=== PATIENT | female | born 1995 | race Hispanic/Latino ===

== ENCOUNTER 2019-01-03 06:54 | Emergency (ER) | payer OTHER ==
[~2019-01-03] VITALS: Ht 157.5 cm; Wt 69.9 kg
[~2019-01-03 06:54] MED LIST: METFORMIN HCL500 MG PO; NAPROXEN250 MG PO; SPRINTEC1 EACH PO
--- OUTSIDE RECORDS SUMMARY | 2019-01-03 06:56 | XMS REPORT | Summary of Care ---
Author Author [facility] Organization [facility] Address Unknown Phone Unavailable Encounter HQ Encntr_alias(FIN) [id number] Date(s): 09/26/16 - 09/26/16 [facility] [address] [place] [address]- Discharge Disposition: Home or Self Care Attending Physician: Antonio Eid MD Referring Physician: Antonio Eid MD Vital Signs No data available for this section Problem List No data available for this section Allergies, Adverse Reactions, Alerts No data available for this section Medications No data available for this section Results No data available for this section Immunizations No data available for this section Procedures No data available for this section Social History No data available for this section Assessment and Plan No data available for this section
--- OUTSIDE RECORDS SUMMARY | 2019-01-03 06:56 | XMS REPORT | Summary of Care ---
Author Author [facility] Organization [facility] Address Unknown Phone Unavailable Encounter HQ Encntr_alias(FIN) [id number] Date(s): 09/28/16 - 09/28/16 [facility] [address] [place] [address]- Discharge Disposition: Home or Self Care Attending Physician: Geovany Green MD Referring Physician: Geovany Green MD Vital Signs No data available for [...]
--- OUTSIDE RECORDS SUMMARY | 2019-01-03 06:56 | XMS REPORT | Continuity of Care Document ---
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 09/24/2016 [facility] Medications Medication Details Route Status Patient Instructions Ordering Provider Order Date Source Allergies, Adverse Reactions, Alerts Substance Category Reaction Severity Reaction type Status Date Reported Comments Source Immunizations Immunization Date Given Site Status Last Updated Comments Source Results Order Name Results Value Reference Range Date Interpretation Comments Source Pelvis Complete US Pelvis Complete US Pelvis Complete US ; 21 years /o Female Clinical Indication: Abdominal pain, acute; Comparison: None Technique: Grayscale, color transabdominal imaging of the pelvis was performed with standard technique. FINDINGS: The urinary bladder is well distended. TRANSABDOMINAL PELVIC ULTRASOUND: UTERUS: The transabdominal pelvic ultrasound evaluation of the uterus shows that the anteverted uterus measures 7.6 x 2.4 x 4.1 cm in size. The uterine parenchyma is not well assessed on the transabdominal pelvic ultrasound. OVARIES: There is normal ovarian contour and morphology. There are no adnexal masses. Right ovary measures 3.8 x 1.6 x 2.5 cm Left ovary measures 3.7 x 1.8 x 2.4 cm. OTHER FINDINGS: The transabdominal sonographic images show no free fluid in the pelvic cul-de-sac. IMPRESSION: Unremarkable transabdominal pelvic ultrasound. SL: SSTRACI 09/28/2016 - - Read by: Satya Jamison MD Dictated Date/time: 09/29/16 22:11 Electronically Signed by: Satya Jamison MD 09/29/16 22:14 FINAL REPORT [facility] Abdomen complete US Abdomen complete US Abdomen complete US TECHNIQUE: Grayscale and color Doppler images of the abdomen were performed with a curvilinear transducer. Static images are submitted for review. CLINICAL HX: K76.0 Fatty (change of) liver, not elsewhere classified; COMPARISON: None FINDINGS: LIVER AND SPLEEN: There is diffuse heterogeneous increase in echogenicity of the liver suggestive of fatty infiltration and/or nonspecific hepatocellular disease. No focal hepatic lesion is visualized. Spleen is normal in size. GALL BLADDER AND BILE DUCTS: Gall bladder is sonolucent without evidence for gall stones. CBD measures 3 mm. PANCREAS: Pancreas is largely obscured by bowel gas. Visualized portion of the pancreas is unremarkable. KIDNEYS: The kidneys are comparable in size and reveal no gross masses or any evidence for hydronephrosis. Maximal sagittal diameter of the right kidney is 11.3 cm and the left kidney is 11.6 cm. VASCULAR: Midline structures are partially obscured due to bowel gas. Visualized portion of the aorta and IVC are unremarkable. ASCITES: No free fluid is present in the upper abdomen. No significant effusion is noted on either side. IMPRESSION: There is diffuse heterogeneous increase in echogenicity of the liver suggestive of fatty infiltration and/or nonspecific hepatocellular disease. No other significant sonographic abnormality is noted in the abdomen. SL: [id number] 09/26/2016 - - Read by: South Kauffman MD Dictated Date/time: 09/26/16 10:55 Electronically Signed by: South Kauffman MD 09/26/16 11:13 FINAL REPORT [facility] Vital Signs Vital Sign Value Date Comments Source Encounters Location Location Details Encounter Type Encounter Number Reason For Visit Attending Provider ADM Date DC Date Status Source [facility] Outpatient [id number] Antonio Eid 09/26/2016 09/27/2016 [facility] Outpatient [id number] Geovany Green 09/28/2016 09/29/2016 [facility] Procedures Procedure Code Date Perfomer Comments Source
[2019-01-03] MEDS ORDERED: SODIUM CHLORIDE 0.9% 1000ML 1,000 ML IV STA (08:15)
[2019-01-03] MEDS ORDERED: PANTOPRAZOLE 40 MG 10ML VIAL IV NR (08:15)
[2019-01-03] MEDS ORDERED: MORPHINE SULFATE INJ 4 MG/ML INJ 1ML IV NR (08:15)
[2019-01-03] MEDS ORDERED: ONDANSETRON HCL INJ 2MG/ML 2ML 2 MG/ML VIAL IV STA (08:15)
--- NOTE | 2019-01-03 08:15 | NUR ---
DR. WASHBURN AT BEDSIDE FOR PT EVAL AT THIS TIME.
[2019-01-03 08:24] LABS: AMPHETAMINES SCREEN,URINE NEGATIVE (NEGATIVE); BENZODIAZEPINES SCREEN,URINE NEGATIVE (NEGATIVE); PHENCYCLIDINE SCREEN,URINE NEGATIVE (NEGATIVE)
--- NOTE | 2019-01-03 08:45 | NUR ---
PT REFUSED MORPHINE AND ZOFRAN AT THIS TIME, DENIES NAUSEA, STATES PAIN NOW 01/22. DR. WASHBURN MADE AWARE OF THIS.
[2019-01-03 08:47] LABS: BASOPHILS # (AUTO) 0.1 (0.0-0.1); BASOPHILS % 0.5 % (0.0-1.0); EOSINOPHILS # (AUTO) 0.2 (0.0-0.4); EOSINOPHILS % 1.8 % (0.0-6.0); HEMATOCRIT 41.2 % (34.2-44.1); HEMOGLOBIN 13.4 g/dL (12.0-16.0); LYMPHOCYTES # (AUTO) 2.8 (1.0-3.2); LYMPHOCYTES % 23.4 % (18.0-39.1); MEAN CORPUSCULAR HEMOGLOBIN 28.9 pg (28-32); MEAN CORPUSCULAR HGB CONC 32.5 g/dL (31-35); MONOCYTES # (AUTO) 0.6 (0.2-0.8); MONOCYTES % 4.7 % (4.4-11.3); NEUTROPHILS # (AUTO) 8.4 (2.1-6.9); NEUTROPHILS % 69.1 % (38.7-80.0); PLATELET COUNT 197 x10e3/uL (140-360); RED BLOOD COUNT 4.63 x10e6/uL (3.6-5.1); RED CELL DISTRIBUTION WIDTH 12.6 % (11.7-14.4)
[2019-01-03 08:50] LABS: BILIRUBIN,URINE NEGATIVE (NEGATIVE); CLARITY,URINE CLOUDY (CLEAR); COLOR,URINE YELLOW (YELLOW); KETONES,URINE NEGATIVE (NEGATIVE); LEUKOCYTE ESTERASE ,URINE NEGATIVE (NEGATIVE); NITRITE,URINE NEGATIVE (NEGATIVE); PROTEIN,URINE DIPSTICK NEGATIVE (NEGATIVE); URINE UROBILINOGEN 0.2 mg/dL (0.2 - 1)
--- NOTE | 2019-01-03 08:51 | Diagnostic Imaging Report ---
EXAMINATION: CHEST 2 VIEWS INDICATION: Chest pain. COMPARISON: None FINDINGS: TUBES and LINES: None. LUNGS: Lungs are not well inflated. There is no evidence of pneumonia or pulmonary edema. PLEURA: No pleural effusion or pneumothorax. HEART AND MEDIASTINUM: The cardiomediastinal silhouette is unremarkable. BONES AND SOFT TISSUES: No acute osseous lesion. Soft tissues are unremarkable. UPPER ABDOMEN: No free air under the diaphragm. IMPRESSION: No acute radiographic abnormality. Signed by: Dr. Elvira Jim MD on 01/03/2019 8:48 AM
[2019-01-03 08:52] LABS: BACTERIA,URINE MANY /HPF; EPITHELIAL CELLS,URINE MODERATE /LPF; RBC,URINE 0-5 /HPF (0-5)
[2019-01-03 09:05] LABS: ALANINE AMINOTRANSFERASE 105 IU/L (0-55); ALBUMIN 3.7 g/dL (3.5-5.0); ALBUMIN/GLOBULIN RATIO 1.2 (0.8-2.0); ALKALINE PHOSPHATASE 50 IU/L (40-150); AMYLASE 65 U/L (25-125); ANION GAP 13.8 mmol/L (8-16); BLOOD UREA NITROGEN 7 mg/dL (7-26); BUN/CREATININE RATIO 10 (6-25); CALCIUM 9.5 mg/dL (8.4-10.2); CARBON DIOXIDE 28 mmol/L (22-29); CHLORIDE 102 mmol/L (98-107); CREATINE KINASE 45 IU/L (29-168); CREATININE, SERUM 0.73 mg/dL (0.57-1.11); EST GLOMERULAR FILTRATION RATE > 60 ML/MIN (60-); GLUCOSE 94 mg/dL (74-118); LIPASE 67 U/L (8-78); POTASSIUM 3.8 mmol/L (3.5-5.1); SODIUM 140 mmol/L (136-145)
[2019-01-03 09:06] LABS: CHOL/HDL RATIO 3.1 (3.0-3.6)
[2019-01-03 09:14] LABS: INR 0.88; PARTIAL THROMBOPLASTIN TIME 27.3 seconds (23.8-35.5); PROTHROMBIN TIME 12.4 seconds (11.9-14.5)
--- NOTE | 2019-01-03 11:12 | Diagnostic Imaging Report ---
EXAM: CT Abdomen and Pelvis WITH contrast INDICATION: Abdominal Pain COMPARISON: Report from CT abdomen/pelvis 09/30/2015, although the images are not available for review. TECHNIQUE: Abdomen and pelvis were scanned utilizing a multidetector helical scanner from the lung base to the pubic symphysis after administration of IV contrast. Coronal and sagittal reformations were obtained. Routine protocol was performed. Scan was performed when during portal venous phase. IV CONTRAST: 100 cc of Isovue 370 ORAL CONTRAST: Water COMPLICATIONS: None RADIATION DOSE: Total DLP: 432.6 mGy*cm Dose modulation, iterative reconstruction, and/or weight based adjustment of the mA/kV was utilized to reduce the radiation dose to as low as reasonably achievable. FINDINGS: LINES and TUBES: None. LOWER THORAX: Patchy dependent atelectasis. HEPATOBILIARY: Diffuse hepatic steatosis. No evidence of focal lesion. No biliary ductal dilation. GALLBLADDER: No radio-opaque stones or sludge. No wall thickening. SPLEEN: No splenomegaly. PANCREAS: No focal masses or ductal dilatation. ADRENALS: No adrenal nodules KIDNEYS/URETERS: Kidneys enhance symmetrically. No evidence of hydronephrosis, solid mass, or stone. GI TRACT: No evidence of wall thickening or distension. Appendix is normal. PELVIC ORGANS/BLADDER: There is a 3.1 cm left ovarian adnexal cyst. LYMPH NODES: No lymphadenopathy. VESSELS: Unremarkable. PERITONEUM / RETROPERITONEUM: No free air or fluid. BONES AND SOFT TISSUES: Unremarkable. CONCLUSION: Diffuse hepatic steatosis. Signed by: Dr. Elvira Jim MD on 01/03/2019 11:09 AM
[2019-01-03] MEDS ORDERED: SODIUM CHLORIDE 0.9% 50ML 50 ML ONE (11:14)
[2019-01-03] MEDS ORDERED: IOPAMIDOL 370 MG/ML 200 ML INFUS..BTL INJ ONE (11:15)
[2019-01-03 12:04] VITALS: BP 116/64
== END 2019-01-03 12:22 | disposition home or self-care (01) ==
LOC: ER 06:54
DX: R10.13 Epigastric pain (principal)
CPT/HCPCS: 36415; 71046; 74177; 80053; 80061; 80307; 81001; 81025; 82150; 82550; 82553; 83690; 83735; 84484; 85025; 85379; 85610; 85730; 93005; 99284; C9113; J2270; J2405; J7030; Q9967

== ENCOUNTER 2019-03-21 14:01 | Observation (INO) | payer OTHER ==
[~2019-03-21] VITALS: Ht 157.5 cm; Wt 76.7 kg
--- OUTSIDE RECORDS SUMMARY | 2019-03-21 14:03 | XMS REPORT | Continuity of Care Document ---
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 IMPRESSION: Unremarkable transabdominal pelvic ultrasound. SL: FER 09/28/2016 [facility] Abdomen complete US Abdomen complete US TECHNIQUE: [...] abnormality is noted in the abdomen. SL: [id number] 09/26/2016 [facility] Consultation Notes No Data Provided for This Section Discharge Summaries No Data Provided for This Section History and Physicals No Data Provided for This Section Vital Signs No Data Provided for This Section Encounters Location Location Details Encounter Type Encounter Number Reason For Visit Attending Provider ADM Date DC Date Status Source [facility] Outpatient [id number] Antonio Eid 09/26/2016 09/27/2016 [facility] Outpatient [id number] Geovany Green 09/28/2016 09/29/2016 [facility] Procedures No Data Provided for This Section Assessment and Plan No Data Provided for This Section Plan of Care No Data Provided for This Section Social History Social History Date Source No data available for this section 09/29/2016 [facility] Family History No Data Provided for This Section Advance Directives No Data Provided for This Section Functional Status No Data Provided for This Section
--- OUTSIDE RECORDS SUMMARY | 2019-03-21 14:04 | XMS REPORT ---
Author Author [facility] Address Unknown Phone Unavailable Care Team Providers Care Kier Hand Name Role Phone Mohinder WASHBURN Unavailable Unavailable Problems This patient has no known problems. Allergies, Adverse Reactions, Alerts This patient has no known allergies or adverse reactions. Medications This patient has no known medications. Results Test Description Test Time Test Comments Text Results Atomic Results Result Comments CT ABDOMEN/PELVIS W 2019-01-03 11:01:00 [place] [address] Patient Name: LJ MCKEON MR #: [id number] : 1995 Age/Sex: 23/F Req #: [id number] Adm Physician: Ordered by: MCKAY WASHBURN MD Report #: [id number] Location: ER Room/Bed: Procedure: [id number] CT/CT ABDOMEN/PELVIS W Exam Date: 01/03/19 Exam Time: 1043 REPORT STATUS: Signed EXAM: CT Abdomen and Pelvis WITH contrast INDICA TION: Abdominal Pain COMPARISON: Report from CT abdomen/pelvis 09/30/2015, although the images are not available for review. TECHNIQUE: Abdomen and pelvis were scanned utilizing a multidetector helical scanner from the lung base to the pubic symphysis after administration of IV contrast. Coronal and sagittal reformations were obtained. Routine protocol was performed. Scan was performed when during portal venous phase. IV CONTRAST: 100 cc of Isovue 370 ORAL CONTRAST: Water COMPLICATIONS: None RADIATION DOSE: Total DLP: 432.6 mGy*cm Dose modulation, iterative reconstruction, and/or weight based adjustment of the mA/kV was utilized to reduce the radiation dose to as low as reasonably achievable. FINDINGS: LINES and TUBES: None. LOWER THORAX: Patchy dependent atelectasis. HEPATOBILIARY: Diffuse hepatic steatosis. No evidence of focal lesion. No biliary ductal dilation. GALLBLADDER: No radio-opaque stones or sludge. No wall thickening. SPLEEN: No splenomegaly. PANCREAS: No focal masses or ductal dilatation. ADRENALS: No adrenal nodules KIDNEYS/URETERS: Kidneys enhance symmetrically. No evidence of hydronephrosis, solid mass, or stone. GI TRACT: No evidence of wall thickening or distension. Appendix is normal. PELVIC ORGANS/BLADDER: There is a 3.1 cm left ovarian adnexal cyst. LYMPH NODES: No lymphadenopathy. VESSELS: Unremarkable. PERITONEUM / RETROPERITONEUM: No free air or fluid. BONES AND SOFT TISSUES: Unremarkable. CONCLUSION: Diffuse hepatic steatosis. Signed by: Dr. Carson Marie MD on 01/03/2019 11:09 AM Dictated By: CARSON MARIE MD 110 Transcribed By: ROCHELLE on 01/03/19 110 COPY TO: MCKAY WASHBURN MD CHEST 2 VIEWS 2019-01-03 08:47:00 [place] [address] Patient Name: LJ MCKEON MR #: [id number] : 1995 Age/Sex: 23/F Req #: [id number] Adm Physician: Ordered by: MCKAY WASHBURN MD Report #: [id number] Location: ER Room/Bed: Procedure: [id number] DX/CHEST 2 VIEWS Exam Date: 01/03/19 Exam Time: 0820 REPORT STATUS: Signed EXAMINATION: CHEST 2 VIEWS INDICATION: Chest pain. COMPARISON: None FINDINGS: TUBES and LINES: None. LUNGS: Lungs are not well inflated. There is no evidence of pneumonia or pulmonary edema. PLEURA: No pleural effusion or pneumothorax. HEART AND MEDIASTINUM: The cardiomediastinal silhouette is unremarkable. BONES AND SOFT TISSUES: No acute osseous lesion. Soft tissues are unremarkable. UPPER ABDOMEN: No free air under the diaphragm. IMPRESSION: No acute radiographic abnormality. Signed by: Dr. Carson Marie MD on 01/03/2019 8:48 AM Dictated By: CARSON MARIE MD 0848 Transcribed By: ROCHELLE on 01/03/19 0848 COPY TO: MCKAY WASHBURN MD
[2019-03-21] MEDS ORDERED: SODIUM CHLORIDE 0.9% 1000ML 1,000 ML IV STA (14:22)
[2019-03-21] MEDS ORDERED: SODIUM CHLORIDE 0.9% 1000ML 1,000 ML ONE (14:26)
[2019-03-21 14:59] LABS: BASOPHILS # (AUTO) 0.1 (0.0-0.1); BASOPHILS % 0.5 % (0.0-1.0); EOSINOPHILS # (AUTO) 0.2 (0.0-0.4); EOSINOPHILS % 1.5 % (0.0-6.0); HEMATOCRIT 42.2 % (34.2-44.1); HEMOGLOBIN 13.7 g/dL (12.0-16.0); LYMPHOCYTES # (AUTO) 3.7 (1.0-3.2); MEAN CORPUSCULAR HEMOGLOBIN 29.2 pg (28-32); MEAN CORPUSCULAR HGB CONC 32.5 g/dL (31-35); MONOCYTES # (AUTO) 0.9 (0.2-0.8); MONOCYTES % 7.1 % (4.4-11.3); NEUTROPHILS # (AUTO) 8.2 (2.1-6.9); NEUTROPHILS % 62.6 % (38.7-80.0); PLATELET COUNT 199 x10e3/uL (140-360); RED BLOOD COUNT 4.69 x10e6/uL (3.6-5.1); RED CELL DISTRIBUTION WIDTH 12.1 % (11.7-14.4)
[2019-03-21] MEDS ORDERED: ONDANSETRON HCL INJ 2MG/ML 2ML 2 MG/ML VIAL IV ONE (15:00)
[2019-03-21] MEDS ORDERED: HYDROMORPHONE 2MG/ML 2 MG/ML ML IV ONE (15:00)
--- NOTE | 2019-03-21 15:00 | NUR ---
RECTAL TEMP OBTAINED 96.2; INFORMED DR. DE DIOS, PT PLACED ON FARZAD GGER.
[2019-03-21 15:20] LABS: ALANINE AMINOTRANSFERASE 85 IU/L (0-55); ALBUMIN 3.9 g/dL (3.5-5.0); ALBUMIN/GLOBULIN RATIO 1.5 (0.8-2.0); ALKALINE PHOSPHATASE 50 IU/L (40-150); AMYLASE 77 U/L (25-125); ANION GAP 18.7 mmol/L (8-16); BLOOD UREA NITROGEN 10 mg/dL (7-26); BUN/CREATININE RATIO 13 (6-25); CALCIUM 9.6 mg/dL (8.4-10.2); CARBON DIOXIDE 23 mmol/L (22-29); CHLORIDE 105 mmol/L (98-107); CREATININE, SERUM 0.76 mg/dL (0.57-1.11); EST GLOMERULAR FILTRATION RATE > 60 ML/MIN (60-); GLUCOSE 110 mg/dL (74-118); LIPASE 64 U/L (8-78); POTASSIUM 4.7 mmol/L (3.5-5.1); SODIUM 142 mmol/L (136-145)
--- NOTE | 2019-03-21 15:20 | NUR ---
LAB CALLED TO REPORT CRITICAL LACTIC ACID 27.3; INFORMED DR. DE DIOS AT THIS TIME.
[2019-03-21 15:40] LABS: THYROID STIMULATING HORMONE 1.486 uIU/mL (0.350-4.940)
--- NOTE | 2019-03-21 15:50 | NUR ---
FARZAD RAINEY REMOVED, PT MAINTAINING TEMPERATURE AT THIS TIME; PROVIDED WITH WARM BLANKETS.
[2019-03-21] MEDS ORDERED: ONDANSETRON HCL INJ 2MG/ML 2ML 2 MG/ML VIAL IV PRN (17:15)
[2019-03-21] MEDS ORDERED: HYDROMORPHONE 2MG/ML 2 MG/ML ML IV PRN (17:15)
[2019-03-21] MEDS: SODIUM CHLORIDE 0.9% 1000ML 1,000 ML IV SCH (17:40)
[2019-03-21] MEDS: PIPER-TAZ 3.375 GM 50 ML IV SCH ×2 (17:42→23:30)
--- OUTSIDE RECORDS SUMMARY | 2019-03-21 17:48 | XMS REPORT | Continuity of Care Document ---
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 SL: FER 09/28/2016 [facility] Abdomen complete US Abdomen complete US TECHNIQUE: [...] abnormality is noted in the abdomen. SL: [id number] 09/26/2016 [facility] Consultation Notes No Data Provided for This Section Discharge Summaries No Data Provided for This Section History and Physicals No Data Provided for This Section Vital Signs No Data Provided for This Section Encounters Location Location Details Encounter Type Encounter Number Reason For Visit Attending Provider ADM Date DC Date Status Source [facility] Outpatient [id number] Antonio Eid 09/26/2016 09/27/2016 [facility] Outpatient [id number] Geovany Green 09/28/2016 09/29/2016 [facility] Procedures No Data Provided for This Section Assessment and Plan No Data Provided for This Section Plan of Care No Data Provided for This Section Social History Social History Date Source No data available for this section 09/29/2016 [facility] Family History No Data Provided for This Section Advance Directives No Data Provided for This Section Functional Status No Data Provided for This Section
[2019-03-21] MEDS ORDERED: PIPER-TAZ 3.375 GM / NS 50ML IV SCH (18:00)
--- NOTE | 2019-03-21 18:20 | NUR ---
RECD PT FROM ER VIA WC AAOX3 DENIES PAIN,NO DISTRESS NTOED,TELE IN PLACE ,NSR 65,IVF INFUSING TO LT AC 20 GAUGE.CALL VILLAR IN REACH,HOB ELEVATED.
[2019-03-21 18:52] LABS: BILIRUBIN,URINE SMALL (NEGATIVE); CLARITY,URINE SL CLOUDY (CLEAR); COLOR,URINE YELLOW (YELLOW); KETONES,URINE TRACE (NEGATIVE); LEUKOCYTE ESTERASE ,URINE TRACE (NEGATIVE); NITRITE,URINE NEGATIVE (NEGATIVE); PROTEIN,URINE DIPSTICK TRACE (NEGATIVE); URINE UROBILINOGEN 2 mg/dL (0.2 - 1)
--- NOTE | 2019-03-21 19:00 | NUR ---
Report and walking rounds completed. Patient in bed with family at bedside. Call light within reach. Will continue to monitor.
[2019-03-21 19:05] VITALS: BP 121/66
[2019-03-21 19:11] LABS: BACTERIA,URINE MODERATE /HPF; EPITHELIAL CELLS,URINE FEW /LPF; RBC,URINE 0-5 /HPF (0-5)
[2019-03-21 19:30] VITALS: BP 121/66
[2019-03-21 20:00] VITALS: BP 120/58
[2019-03-22] VITALS (7 sets, daily range): BP systolic 107–124; BP diastolic 55–63
[2019-03-22] MEDS: SODIUM CHLORIDE 0.9% 1000ML 1,000 ML IV SCH ×3 (01:25→20:35)
[2019-03-22 05:55] LABS: BASOPHILS % 0.5 % (0.0-1.0); EOSINOPHILS # (AUTO) 0.1 (0.0-0.4); EOSINOPHILS % 1.3 % (0.0-6.0); HEMATOCRIT 35.7 % (34.2-44.1); HEMOGLOBIN 11.7 g/dL (12.0-16.0); LYMPHOCYTES # (AUTO) 2.8 (1.0-3.2); LYMPHOCYTES % 32.4 % (18.0-39.1); MEAN CORPUSCULAR HEMOGLOBIN 29.7 pg (28-32); MEAN CORPUSCULAR HGB CONC 32.8 g/dL (31-35); MEAN CORPUSCULAR VOLUME 90.6 fL (81-99); MONOCYTES # (AUTO) 0.6 (0.2-0.8); MONOCYTES % 7.2 % (4.4-11.3); NEUTROPHILS % 58.4 % (38.7-80.0); PLATELET COUNT 164 x10e3/uL (140-360); RED BLOOD COUNT 3.94 x10e6/uL (3.6-5.1); RED CELL DISTRIBUTION WIDTH 12.3 % (11.7-14.4)
[2019-03-22 06:06] LABS: ANION GAP 12.3 mmol/L (8-16); BLOOD UREA NITROGEN 8 mg/dL (7-26); BUN/CREATININE RATIO 10 (6-25); CALCIUM 8.6 mg/dL (8.4-10.2); CARBON DIOXIDE 24 mmol/L (22-29); CHLORIDE 106 mmol/L (98-107); CREATININE, SERUM 0.77 mg/dL (0.57-1.11); EST GLOMERULAR FILTRATION RATE > 60 ML/MIN (60-); GLUCOSE 87 mg/dL (74-118); POTASSIUM 4.3 mmol/L (3.5-5.1); SODIUM 138 mmol/L (136-145)
[2019-03-22] MEDS: PIPER-TAZ 3.375 GM 50 ML IV SCH ×4 (06:08→23:23)
[2019-03-22 06:33] LABS: CHOL/HDL RATIO 3.5 (3.0-3.6)
--- NOTE | 2019-03-22 07:30 | NUR ---
RECEIVED PATIENT AWAKE RESTING IN BED NO SIGNS OF DISTRESS. BED LOW, WHEELS LOCKED, SIDE RAILS X2. CALL LIGHT IN REACH WILL CONTINUE TO MONITOR PATIENT.
--- NOTE | 2019-03-22 09:20 | NUR ---
PATIENT A/O X3, EVEN RESPIRATIONS ON RA. LUNG SOUNDS CLEAR TO AUSCULTATION. LEFT AC 18 GAUGE WITH NS @ 125 CC/HR. PATIENT AMBULATES INDEPENDENTLY. TELEMETRY #7 SR. VITAL SIGNS STABLE. SKIN INTACT. CALL LIGHT IN REACH. WILL CONTINUE TO MONITOR PATIENT.
--- NOTE | 2019-03-22 11:07 | Diagnostic Imaging Report ---
EXAM: Right upper quadrant abdominal ultrasound INDICATION: Right upper quadrant pain COMPARISON: CT abdomen and pelvis of 01/03/2019 TECHNIQUE: Transverse and longitudinal images of the right upper quadrant abdomen were obtained FINDINGS: Liver: Size: 16.4 cm in the right midclavicular line. Appearance: Increased echogenicity of liver parenchyma. Smooth liver contour. Mass: No focal masses Gallbladder: Dependent gallstones and sludge in the fluid-filled gallbladder. No gallbladder wall thickening (2.7 mm). No pericholecystic fluid. Negative sonographic Morel's sign. Bile Ducts: Intrahepatic Ducts: No dilatation Extrahepatic Ducts: Common bile duct measures 5.8 mm, no dilatation Pancreas: Visualized portions of the pancreatic head, neck and proximal body are normal. Kidney: The right kidney measures 11.7 cm without evidence of hydronephrosis or stone. Vessels: Aorta: Visualized portions are normal Inferior Vena Cava: Visualized portions are normal Main Portal Vein: 0.96 cm, normal size with hepatopetal flow. Free Fluid: No ascites or pleural effusion IMPRESSION: Cholelithiasis without specific sonographic evidence of cholecystitis. Hepatic steatosis. Liver size measures upper limits of normal. Signed by: Tom Walter MD on 03/22/2019 11:03 AM
--- NOTE | 2019-03-22 14:55 | NUR ---
PATIENT OFF UNIT FOR HIDA SCAN AT THIS TIME.
[2019-03-22] MEDS ORDERED: ACETAMINOPHEN 325 MG TAB PO PRN (15:30)
[2019-03-22] MEDS ORDERED: MORPHINE SULFATE 2 MG/ML SYR 1ML IV PRN (15:30)
[2019-03-22] MEDS ORDERED: MORPHINE SULFATE INJ 4 MG/ML INJ 1ML IV PRN (15:45)
--- NOTE | 2019-03-22 16:00 | NUR ---
Nutrition Screen Note RD Recommendation for Physician: -Rec advancing diet as tolerated to low fat diet Plan of Care: RD following, monitoring for tolerance and adequacy, diet education Nutrition reason for involvement: RN consult low fat diet Primary Diagnose(s): recurrent severe abdominal pain, lactic acidosis PMH: Non-alcoholic fatty liver, PCOS, pancreatitis Ht: 62in Wt: 154lb BMI: 28.2kg/m2 IBW: 110lb +/- 10% RD Assessment: (03/22) Chart reviewed. Labs and meds reviewed. 23yo F, who was admitted for recurrent abdominal pain. Lipase WNL. TG was high at 232 and cholesterol WNL. Gallbladder US showed cholelithiasis. Pending HIDA scan. Visited pt in the room. Pt denied any pain at this time. No complains of nausea or vomiting. LBM 03/21, diarrhea per pt. Her weight has fluctuated since pt was making an effort to lose weight. RD provided education on low fat diet as consulted. All questions have been answered. Current Diet: NPO Malnutrition Evaluation (03/22/2019) The patient does not meet criteria for a specified degree of malnutrition at this time. Will re-evaluate at follow-up as appropriate. Diet Education Needs Assessment: Diet education indicated, pt is agreeable. Learner(s): pt and mother Time spent: 20 minutes Barriers: No barriers identified. Cultural/Language Modifications: No cultural/language modifications noted. Pt and mother speak Setswana. Readiness: Pt eager to learn. Method: Handouts, explanation Topics: Triglyceride Nutrition Therapy Understanding/Compliance: Expect good understanding/compliance from pt. Will benefit from reinforcement. All questions have been answered. Nutrition Care Level: low Signed: Jodie Tejada, MS, RD, LD
[2019-03-22] MEDS: METFORMIN HCL 500 MG TAB PO SCH (17:00)
--- NOTE | 2019-03-22 17:41 | History and Physical ---
CHIEF COMPLAINT: Epigastric pain. HISTORY OF PRESENT ILLNESS: This is a 23-year-old female, morbidly obese, who has a history of chronic pancreatitis in the past, who presents to the ED with complaints of epigastric abdominal pain, episodic in nature, sharp as well. The patient reports that she has had a history of pancreatitis in the past, which is resolved on spontaneously. She now reports episodic epigastric abdominal pain ongoing for several weeks now. She reports that the pain will last about 1 to 2 hours, then resolved on its own. She reports the pain is very sharp in nature, nausea, associated with no vomiting. The pain is resolved back to our. She states that she was doing much better with no complaints. She is back to normal baseline. The patient denies any usage of NSAIDs [id number] at home. The patient is seen and evaluated at bedside on the medical floor. Currently, she is doing well with no other issues at this time. REVIEW OF SYSTEMS: Pertinent positives: Epigastric abdominal pain, decreased oral intake, nausea. Pertinent negative: Denies any chest pain, palpitation, dysuria, hematuria, frequency, urgency, lightheadedness, dizziness, cough, congestion, fever, or any other complaints. The rest of 14-point review of systems have been reviewed with the patient and are negative. ALLERGIES: NO KNOWN DRUG ALLERGIES. MEDICATIONS: Metformin 500 mg p.o. b.i.d., naproxen 500 mg p.o. b.i.d. for pain, she also takes daily. PAST MEDICAL HISTORY: PCOS, morbidly obese. PAST SURGICAL HISTORY: None. FAMILY HISTORY: Hypertension and diabetes. SOCIAL HISTORY: No drugs. No alcohol. Does not smoke. Good social support. PHYSICAL EXAMINATION: VITAL SIGNS: Temperature is 99.5, pulse 82, respiratory rate is 18, blood pressure 108/55. T-max is 99.5. No evidence of any fever. GENERAL: In no acute distress, alert and oriented x3. Cooperative on exam. HEENT: Head is normocephalic and atraumatic. Eyes; pupils are equal, round, and reactive to light bilaterally. Throat, no . NECK: Supple. Good range of motion. PULMONARY: Clear to auscultation bilaterally. No wheezing, no rales, no rhonchi. CARDIOVASCULAR: Positive S1, S2. No murmurs, rubs, or gallops appreciated. ABDOMEN: Soft, nondistended, and nontender to palpation. Bowel sounds present. MUSCULOSKELETAL: Strength is 5/5 throughout. No evidence of any muscle deficits on examination. No weakness appreciated. NEUROLOGICAL: Cranial nerves II through XII grossly intact. No evidence of any neurological deficits on exam. SKIN: Intact. Warm to touch. Good cap refill. PSYCHIATRIC: Normal affect and mood. EXTREMITIES: No edema. Good range of motion. LABORATORY DATA: Lab findings show white count 8.6, hemoglobin 11.7, hematocrit 35.7, and platelets of 164. Chemistry; sodium 138, potassium 4.3, chloride 106, bicarb 24, anion gap of 12, BUN is , creatinine 0.77, glucose is 87. Lactic acid was 27. Calcium 8.6. LFTs, total bilirubin is 0.9, AST 161, ALT 85, calcium 9.6, alk phos 50. Total bilirubin 3.9, LDL 63, triglycerides 232, lipase is 64, TSH 1.4. Urinalysis noted trace protein, trace ketones, trace leukocyte esterase, 6-10 wbc's, moderate bacteria. Blood cultures, no growth. Urine cultures, preliminary no growth. IMAGING STUDIES: Gallbladder ultrasound found to be negative for acute cholecystitis. Hepatic steatosis. Liver size measures upper limits of normal. IMPRESSION: 1. Epigastric abdominal pain, unknown etiology. 2. History of polycystic ovary syndrome. 3. Type 2 diabetes. PLAN: At this time, GI has been consulted. HIDA scan has been ordered, still pending. Right upper quadrant ultrasound shows no evidence of cholecystitis. This pain shows evidence of hepatic steatosis. If HIDA scan is negative, we will likely need to be getting EGD to further evaluate. Resume same home medications. Encourage ambulation for DVT prophylaxis. She is on a regular diet. Otherwise, we will continue same plan of care. No other changes. MD VANDANA Christopher/MODL /[id number]
--- NOTE | 2019-03-22 18:10 | NUR ---
CONSULTED DR. BISHOP. PATIENT OK TO HAVE CLEAR LIQUIDS. WILL BE NPO AFTER MIDNIGHT.
--- NOTE | 2019-03-22 19:02 | Diagnostic Imaging Report ---
Hepatobiliary Scan with Gallbladder Ejection Fraction Clinical information: Abdominal pain x 3 months Technique: Following intravenous administration of 6.7 millicuries of Tc-99m mebrofenin, dynamic images of the abdomen in the anterior projection were obtained through 60 minutes. Sincalide (CCK analog) 1.5 micrograms was administered intravenously over 30 minutes with additional imaging for determination of gallbladder ejection fraction. Discussion: Perfusion of the liver is normal. Extraction of tracer by the liver parenchyma is normal. Tracer appears promptly within the biliary tract. The gallbladder begins to fill at 35 minutes post injection of tracer and fills adequately. Tracer is seen in the small bowel during the sincalide infusion. There is no contractile response by the gallbladder to the pharmacologic dose of sincalide. No emptying of the gallbladder occurs during the 30 minute infusion. Impression: 1. Filling of the gallbladder excludes acute cystic duct obstruction/acute cholecystitis. 2. The gallbladder ejection fraction is undefined as there is no emptying of the gallbladder during the infusion of sincalide. This absence of a contractile response to sincalide supports the clinical diagnosis of chronic cholecystitis/gallbladder dyskinesia. Signed by: Dr. Erin Kinsey M.D. on 03/22/2019 6:59 PM
[2019-03-23] VITALS (7 sets, daily range): BP systolic 118–132; BP diastolic 55–77
--- NOTE | 2019-03-23 | NUR ---
Tele called and stated HR down into 40's, patient sleeping. Patient awoken, denies any symptoms, remain asymptomatic. Patient reported that HR went down to 39 BPM in ER. Will continue to monitor.
[2019-03-23] MEDS: PIPER-TAZ 3.375 GM 50 ML IV SCH ×3 (06:15→21:18)
--- NOTE | 2019-03-23 06:38 | NUR ---
Notified Dr Davis of low HR in 40's while patient slept. Lowest dropped was 38 but did not sustain. Patient asymptomatic. No new orders at this time.
[2019-03-23 06:41] LABS: BASOPHILS % 0.5 % (0.0-1.0); EOSINOPHILS # (AUTO) 0.2 (0.0-0.4); EOSINOPHILS % 2.7 % (0.0-6.0); HEMATOCRIT 37.4 % (34.2-44.1); LYMPHOCYTES # (AUTO) 2.8 (1.0-3.2); LYMPHOCYTES % 47.4 % (18.0-39.1); MEAN CORPUSCULAR HEMOGLOBIN 29.4 pg (28-32); MEAN CORPUSCULAR HGB CONC 32.1 g/dL (31-35); MEAN CORPUSCULAR VOLUME 91.7 fL (81-99); MONOCYTES # (AUTO) 0.4 (0.2-0.8); MONOCYTES % 6.5 % (4.4-11.3); NEUTROPHILS # (AUTO) 2.5 (2.1-6.9); NEUTROPHILS % 42.7 % (38.7-80.0); PLATELET COUNT 150 x10e3/uL (140-360); RED BLOOD COUNT 4.08 x10e6/uL (3.6-5.1); RED CELL DISTRIBUTION WIDTH 12.2 % (11.7-14.4)
[2019-03-23 06:50] LABS: ALANINE AMINOTRANSFERASE 94 IU/L (0-55); ALBUMIN 3.4 g/dL (3.5-5.0); ALBUMIN/GLOBULIN RATIO 1.2 (0.8-2.0); ALKALINE PHOSPHATASE 51 IU/L (40-150); ANION GAP 12.2 mmol/L (8-16); BLOOD UREA NITROGEN 7 mg/dL (7-26); BUN/CREATININE RATIO 9 (6-25); CALCIUM 9.1 mg/dL (8.4-10.2); CARBON DIOXIDE 25 mmol/L (22-29); CHLORIDE 106 mmol/L (98-107); CREATININE, SERUM 0.79 mg/dL (0.57-1.11); EST GLOMERULAR FILTRATION RATE > 60 ML/MIN (60-); GLUCOSE 85 mg/dL (74-118); POTASSIUM 4.2 mmol/L (3.5-5.1); SODIUM 139 mmol/L (136-145)
--- NOTE | 2019-03-23 07:03 | NUR ---
RECEIVED PATIENT AWAKE RESTING IN BED. NO S/S OF DISTRESS. BED LOW, WHEELS LOCKED, SIDE RAILS X2. MOM AT BEDSIDE. WILL CONTINUE TO MONITOR PATIENT.
[2019-03-23] MEDS: METFORMIN HCL 500 MG TAB PO SCH ×2 (08:00→17:23)
--- NOTE | 2019-03-23 11:39 | NUR ---
PATIENT SENT TO OR AT THIS TIME VIA BED.
[2019-03-23] MEDS ORDERED: BUPIVACAINE 0.25%/EPI 30ML SDV INJ ONE (11:49)
[2019-03-23] MEDS ORDERED: ACETAMINOPHEN 1000 MG/100 ML IV PRN (13:45)
[2019-03-23] MEDS ORDERED: HYDROCODONE/APAP 7.5MG-325MG 1 EA TAB PO PRN (13:45)
[2019-03-23] MEDS ORDERED: HYDROMORPHONE 2MG/ML 2 MG/ML ML IV PRN (13:45)
--- NOTE | 2019-03-23 14:25 | NUR ---
PATIENT BACK FROM OR AT THIS TIME. 4 TROCAR SITES ON ABDOMEN CLEAN, DRY, AND INTACT. NO PAIN VOICED AT THIS TIME. TOLERATING CLEAR LIQUID DIET. NO N/V. CALL LIGHT IN REACH. WILL CONTINUE TO MONITOR PATIENT.
--- NOTE | 2019-03-23 14:33 | Operative Report ---
DATE OF PROCEDURE: 03/23/2019 SURGEON: Monty Jurado MD PREOPERATIVE DIAGNOSES: Cholecystitis, cholelithiasis, and nonalcoholic steatohepatitis. POSTOPERATIVE DIAGNOSES: Cholecystitis, cholelithiasis, and nonalcoholic steatohepatitis. OPERATION PERFORMED: Laparoscopic cholecystectomy and wedge biopsy of the right lobe of the liver. ANESTHESIA: General. COMPLICATIONS: None. ESTIMATED BLOOD LOSS: Minimal. PROCEDURE IN DETAIL: With the patient lying in bed in the supine position under good general endotracheal anesthesia, the abdomen was prepped with Betadine solution and draped in the usual manner. A Veress needle was introduced into the umbilicus and pneumoperitoneum was established without any difficulty. An 11 mm trocar was placed into the umbilicus and a 10 mm video laparoscope was placed into the intra-abdominal cavity. Under direct vision, three 5 mm trocars were placed in the right subcostal region. Video laparoscopy at this point revealed the liver that shows some fatty infiltration, there were no signs of any cirrhosis of the liver. The gallbladder was totally covered up with omental adhesions. The rest of the abdominal exploration was within normal limits. All of the adhesions to the gallbladder were then slowly and carefully taken down. The peritoneum overlying the neck of the gallbladder was then opened and the cystic duct was identified. The cystic duct was followed to its junction with the common duct. Cystic duct was then circumferentially dissected away from the common duct, doubly clipped and divided. Cystic artery was similarly doubly clipped and divided. The gallbladder was then slowly and carefully taken off the liver bed using the cautery scissors and perfect hemostasis was ascertained. The gallbladder was grasped through the umbilical port and removed without any difficulty. Video laparoscopy was then again carried out. The liver bed was found to be perfectly dry. A wedge of the right lobe of the liver was then taken sharply with the scissors and sent for pathological examination. The liver was then cauterized and hemostasis was ascertained. SurgiSeal was then placed over the area of the liver biopsy and hemostasis was ascertained over a period of time. All of the excess fluid was aspirated, the pneumoperitoneum was evacuated, and all the trocars were removed under direct vision. The midline fascia at the umbilicus was then closed with a rjsipl-vw-hhyel of 0 Vicryl. All layers were infiltrated on the way out with solution of 0.25% Marcaine. Subcutaneous tissue was approximated with 3-0 Vicryl and the skin was closed with subcuticular 5-0 Vicryl. Benzoin, Steri-Strips, and Band-Aids were applied. The sponge, lap, and needle count was correct. The patient tolerated the procedure well and returned to the recovery room in stable condition. MD MARY JANE Alfaro/CHUNG /[id number]
[2019-03-23] MEDS: PANTOPRAZOLE 40 MG 10ML VIAL IV SCH (14:40)
--- NOTE | 2019-03-23 15:25 | NUR ---
DISCUSSED IN ROUNDS, PT GOING FOR [facility] WITH Kael NOVOA,
[2019-03-23] MEDS: SODIUM CHLORIDE 0.9% 1000ML 1,000 ML IV SCH (17:23)
[2019-03-23] MEDS ORDERED: PROPOFOL IV EMULSION 10 MG/ML 20 ML VIAL ONE (18:10)
[2019-03-23] MEDS ORDERED: DEXAMETHASONE SOD PHOS INJ 4 MG/ML VIAL ONE (18:10)
[2019-03-23] MEDS ORDERED: LIDOCAINE HCL 2% LOCAL INJ 5 ML SDV VIAL INJ ONE (18:10)
[2019-03-23] MEDS ORDERED: SEVOFLURANE INHAL SOLN 250 ML PEN BTL ONE (18:10)
[2019-03-23] MEDS ORDERED: ROCURONIUM BROMIDE 10 MG/ML 5ML VIAL ONE (18:10)
[2019-03-23] MEDS ORDERED: ONDANSETRON HCL INJ 2MG/ML 2ML 2 MG/ML VIAL ONE (18:10)
[2019-03-23] MEDS ORDERED: FENTANYL CITRATE/PF 100MCG/2 ML INJ ONE (18:34)
[2019-03-23] MEDS ORDERED: MIDAZOLAM HCL 2 MG/2 ML VIAL ONE (18:34)
--- NOTE | 2019-03-23 19:00 | NUR ---
Report and walking rounds complete. Patient sitting on side of bed with visitors at bedside. Call light within reach. Will continue to monitor.
--- NOTE | 2019-03-23 20:28 | Progress Note ---
DATE: 03/23/2019 Medicine Progress Note SUBJECTIVE: The patient is doing well today with no complaints. HIDA scan consistent with biliary dyskinesia. The patient underwent status post laparoscopic cholecystectomy performed today by General Surgery. The patient did well postoperatively. I evaluated her postoperatively with no complaints. PHYSICAL EXAMINATION: VITAL SIGNS: Temperature 97.3, pulse 73, respiratory rate is 18, blood pressure 126/77, pulse ox 92% on room air. GENERAL: Not in acute distress. Alert and oriented x3. Cooperative on examination. HEENT: Head is normocephalic and atraumatic. Eyes; pupils are equal, round, and reactive to light bilaterally. Extraocular movements are intact bilaterally. Throat, no evidence of erythema or exudates in the posterior pharynx. Has poor dentition. NECK: Supple. Good range of motion. PULMONARY: Clear to auscultation bilaterally. No wheezing, no rales, no rhonchi, no crackles appreciated. CARDIOVASCULAR: Positive S1, S2. No murmurs, rubs, or gallops appreciated. ABDOMEN: Soft, nondistended, and nontender to palpation. Bowel sounds present. MUSCULOSKELETAL: Strength is 5/5 throughout. No evidence of any muscle deficits on examination. No weakness appreciated. NEUROLOGICAL: Cranial nerves II through XII grossly intact. No evidence of any neurological deficits on exam. SKIN: Intact. Warm to touch. Good cap refill. PSYCHIATRIC: Normal affect and mood. EXTREMITIES: No edema. Good range of motion throughout. LABORATORY DATA: Lab findings show white count 5.8, hemoglobin is 12, hematocrit 37, and platelets of 150. Chemistry; sodium 139, potassium 4.2, chloride 106 bicarb 25, anion gap of 12, BUN of 7, creatinine is 0.79, glucose is 85, calcium 9.1, AST 47, ALT 94, total protein 6.2, albumin 3.4. LDL was 63. Lactic acid was 11.6, which is normal. Urinalysis none. MICROBIOLOGY: Blood cultures are negative. Urine culture is negative. IMPRESSION: 1. Biliary dyskinesia status post laparoscopic cholecystectomy performed on 03/23/2019. 2. History of polycystic ovary syndrome. 3. Type 2 diabetes. PLAN: At this time, she underwent status post laparoscopic cholecystectomy. Postop care. She is doing very well. Pain control. She is on clear liquid diet advance as tolerated. Encourage ambulation for DVT prophylaxis. Likely the patient will be discharged home tomorrow once cleared by the consultants. MD VANDANA Christopher/CHUNG /[id number]
[2019-03-24] VITALS: BP 107/63
[2019-03-24] MEDS: SODIUM CHLORIDE 0.9% 1000ML 1,000 ML IV SCH ×2 (01:06→15:34)
[2019-03-24] MEDS: PIPER-TAZ 3.375 GM 50 ML IV SCH ×3 (03:30→15:20)
[2019-03-24 04:00] VITALS: BP 118/61
[2019-03-24 06:01] LABS: BASOPHILS % 0.3 % (0.0-1.0); EOSINOPHILS % 0.3 % (0.0-6.0); HEMATOCRIT 35.9 % (34.2-44.1); HEMOGLOBIN 11.8 g/dL (12.0-16.0); LYMPHOCYTES # (AUTO) 2.3 (1.0-3.2); LYMPHOCYTES % 25.7 % (18.0-39.1); MEAN CORPUSCULAR HEMOGLOBIN 29.6 pg (28-32); MEAN CORPUSCULAR HGB CONC 32.9 g/dL (31-35); MONOCYTES # (AUTO) 0.7 (0.2-0.8); MONOCYTES % 7.3 % (4.4-11.3); NEUTROPHILS % 66.2 % (38.7-80.0); PLATELET COUNT 168 x10e3/uL (140-360); RED BLOOD COUNT 3.99 x10e6/uL (3.6-5.1); RED CELL DISTRIBUTION WIDTH 11.9 % (11.7-14.4)
[2019-03-24 06:22] LABS: ANION GAP 12.5 mmol/L (8-16); BLOOD UREA NITROGEN 5 mg/dL (7-26); BUN/CREATININE RATIO 6 (6-25); CALCIUM 8.9 mg/dL (8.4-10.2); CARBON DIOXIDE 25 mmol/L (22-29); CHLORIDE 107 mmol/L (98-107); CREATININE, SERUM 0.78 mg/dL (0.57-1.11); EST GLOMERULAR FILTRATION RATE > 60 ML/MIN (60-); GLUCOSE 92 mg/dL (74-118); POTASSIUM 3.5 mmol/L (3.5-5.1); SODIUM 141 mmol/L (136-145)
--- NOTE | 2019-03-24 07:00 | NUR ---
bedside shift report received by night rn, pt in stable conditions, 4 trochar sites to abdomen c/d/i, l ac 18g no ss of infiltration noted, no other co voiced call light in reach will continue to monitor
[2019-03-24 08:22] VITALS: BP 119/77
[2019-03-24] MEDS: METFORMIN HCL 500 MG TAB PO SCH ×2 (08:22→16:55)
[2019-03-24 10:14] VITALS: BP 119/77
[2019-03-24 12:00] VITALS: BP 113/85
[2019-03-24] MEDS: PANTOPRAZOLE 40 MG 10ML VIAL IV SCH (13:44)
[2019-03-24 17:31] VITALS: BP 101/63
--- NOTE | 2019-03-25 04:33 | Discharge Summary ---
FINAL DISCHARGE DIAGNOSES: 1. Status post laparoscopic cholecystectomy performed on 03/23/2019, with imaging studies consistent with biliary dyskinesia. 2. History of polycystic ovarian syndrome. 3. Type 2 diabetes. CONSULTANTS: GI and General surgery. PHYSICAL EXAMINATION: VITAL SIGNS: Temperature 97.1, pulse 63, respiratory rate is 18, blood pressure is 101/63, pulse ox 97% on room air. LABORATORY FINDINGS: Show white count 9, hemoglobin 11.8, hematocrit 35.9, and platelets of 168. Chemistry; sodium 141, potassium 3.5, chloride 107, bicarb 25, anion gap of 12, BUN is 5, creatinine 0.78, calcium is 8.9, albumin is 3.4, LDL 63. Urinalysis was negative. Urine cultures were negative, there was a contamination. Blood cultures were negative greater than 72 hours. IMAGING STUDIES: Gallbladder ultrasound shows cholelithiasis without specific sonographic evidence of cholecystitis. Hepatic steatosis. Liver size measuring upper limits of normal. HIDA scan showed gallbladder ejection fraction is undefined as there is no emptying of the gallbladder during the infusion of sincalide. This is consistent with gallbladder dyskinesia. There is no evidence of acute cholecystitis. HOSPITAL COURSE: A 23-year-old female, who came into the ED with complaints of epigastric abdominal pain, ongoing for the last several days prior to the hospital admission. Reports having some nausea and vomiting as well associated. The patient came in, GI and General Surgery were consulted. Initially, GI ordered a right upper quadrant ultrasound, shows evidence of hepatic steatosis and evidence of cholelithiasis with no evidence of acute cholecystitis. HIDA scan is consistent with biliary dyskinesia, and General Surgery was consulted. The patient is awake, status post laparoscopic cholecystectomy on 03/23/2019. The patient did well postoperatively with no complaints. The patient also had a liver biopsy performed as well, which she is to follow up with GI as an outpatient. I discussed this with the patient and the mother at bedside and they verbalized to followup very closely. On discharge, the patient was doing well, tolerating diet well with no complaints. On the day of discharge, vital signs stable, labs reviewed and stable. The patient was seen, evaluated, examined thoroughly on the day of discharge. No other complaints. The patient verbalized understanding and agreed to plan of care for followup as an outpatient with the primary care physician in 1 week and GI and General Surgery in 2 weeks' time. MEDICATIONS: See med reconciliation form. DISPOSITION: Home. CONDITION: Stable. DIET: Heart healthy. In the event of any worsening symptoms, the patient was advised to come back to the ED for further evaluation. Discharge summary took greater than 35 minutes. Once again, I discussed it is important to follow up with General Surgery in 2 weeks and follow up with Dr. Bermudez of GI in about 2 weeks to get the pathology report on the liver biopsy. The patient and the patient's mother at bedside verbalized understanding and agrees with plan of care. MD VANDANA Christopher/CHUNG /[id number]
== END 2019-03-24 19:18 | disposition home or self-care (01) ==
LOC: ER 14:01 → ERHOLD 17:46 → MED/SURG 18:08
PROVIDERS: ADMIT Internal Medicine; ATTEND Internal Medicine
DX: K80.10 Calculus of gallbladder with chronic cholecystitis without obstruction (principal); E28.2 Polycystic ovarian syndrome; E11.9 Type 2 diabetes mellitus without complications; K76.0 Fatty (change of) liver, not elsewhere classified; K82.8 Other specified diseases of gallbladder
CPT/HCPCS: 36415 ×4; 47100; 47562; 76705; 78227; 80048 ×2; 80053 ×2; 80061; 81001; 82150; 83605 ×2; 83690; 84443; 84702; 85025 ×4; 87040; 87086; 88304; 88307; 88313; 99284; A9537; C1766; C9113 ×2; G0378 ×4; J1100; J1170; J2001; J2250; J2405 ×2; J2543 ×4; J2704; J7030 ×4; J3010